=== PATIENT | female | born 1985 | race Caucasian/White ===

== ENCOUNTER 2018-08-09 05:39 | Day surgery (SDC) | payer MEDICAID ==
[2018-08-06 09:26] VITALS: BMI 23.6
--- NOTE | 2018-08-08 10:03 | PREOPHP ---
DATE OF ADMISSION: 08/09/2018 HISTORY OF PRESENT ILLNESS: Ms. Kaleigh Motley is a 33-year-old 3, para 2, desires permanent surgical sterilization. MEDICAL HISTORY: None. MEDICATIONS: Oral contraception pills. PAST SURGICAL HISTORY: None. OBSTETRICAL HISTORY: Vaginal delivery x2, x1 missed AB., GYNECOLOGIC HISTORY: Twelve, regular, 3 to 4 days. Denies any sexually transmitted infections. SOCIAL HISTORY: Denies any smoking, drugs or alcohol. FAMILY HISTORY: None. REVIEW OF SYSTEMS: All within normal except history of present illness. PHYSICAL EXAMINATION: HEENT: Within normal. LUNGS: CTA bilateral. HEART: S1, S2, regular rhythm. ABDOMEN: Obese, soft, nontender. EXTREMITIES: Negative edema. No calf tenderness. GENITOURINARY: Normal external genitalia. Cervix negative. CMT negative lesions. Adnexa negative mass, nontender bilateral. Fundus within normal limits. ASSESSMENT: Multiparity, desires permanent surgical sterilization. PLAN: Consent for laparoscopic bilateral tubal sterilization. Risks, benefits and alternatives explained. All questions were answered. Dictated By: CLARISSE JUAREZ/JARAD Conf#: [id number] DID#: [id number] BARRERA
[2018-08-09] VITALS (12 sets, daily range): BP systolic 113–130; BP diastolic 56–69; PULSE 62–97; RESP 14–24; Ht 157.5 cm; Wt 101.9 kg
[~2018-08-09] VITALS: Ht 157.5 cm; Wt 101.9 kg
[~2018-08-09 05:39] MED LIST: [UNRECOGNIZED DRUG - REMARK]
[2018-08-09] MEDS ORDERED: SUMA25TA3 PO (06:52)
[2018-08-09] MEDS ORDERED: SEVOFLURANE 15 MIN ONE (07:00)
[2018-08-09] MEDS ORDERED: LACTATED RINGER'S 1,000 ML IV SCH (07:00)
--- NOTE | 2018-08-09 07:31 | PREAC ---
Date/Time of Note Date/Time of Note DATE: 08/09/18 TIME: 07:29 Anesthesia Eval and Record Evaluation Time Pre-Procedure Interview DATE: 08/09/18 TIME: 07:29 Age 33 Sex female NPO: 8 hrs Preoperative diagnosis Sterilization Planned procedure BTL Past Medical History Past Medical History: Includes GI: Morbid obesity Surgery & Anesthesia Issues No known issue Meds Anticoagulation: Yes Beta Maria Elena within 24 hr: Yes Reported Medications Sumatriptan Succinate* (Sumatriptan Succinate*) 25 Mg Tablet, 25 MG PO BID PRN for MIGRAINE HEADACHE, TAB May repeat after 2 hours if needed; MAX 200 mg/24 hours 08/09/18 [Migrain Meds] No Conflict Check, PRN for HEADACHE 08/06/18 Current Medications Lactated Ringer's 1,000 ml @ 0 mls/hr Q0M IV ; Start 08/09/18 at 07:00 Meds reviewed: Yes Allergies Coded Allergies: No Known Allergy (Unverified , 08/06/18) Allergies Reviewed: Yes Labs/Studies Labs Reviewed: Reviewed by anesthesiologist Result Diagram: 08/09/18 0632 Laboratory Tests 08/09/18 06:32 test: Negative Studies: ECG Pre-procedure Exam Last vitals Vital Signs Date Temp Pulse Resp B/P (MAP) Pulse Ox O2 O2 Flow FiO2 Time Delivery Rate 08/09/18 97.3 97 18 130/69 99 Room Air 06:42 (89) Airway: Adequate mouth opening, Adequate thyromental dist Mallampati: Mallampati II Teeth: Normal Lung: Normal Heart: Normal ASA Physical Status ASA physical status: 2 Emergency: None Planned Anesthetic General/MAC: ETT Planned Pain Management Parenteral pain med Pre-operative Attestations Prior to commencing anesthesia and surgery, the patient was re-evaluated, there was verification of: *The patient's identity *The results of appropriate recent lab work and preoperative vital signs *The above evaluation not changing prior to induction *Anesthetic plan, risk benefits, alternative and complications discussed with patient/family; questions answered; patient/family understands, accepts and wishes to proceed. THEO MILLER MD Aug 09, 2018 07:31
[2018-08-09] MEDS ORDERED: BUPIVACAINE 0.25% (MPF) 30 ML INJ ONE (07:34)
[2018-08-09] MEDS ORDERED: MIDAZOLAM 1 MG/ML 2 ML INJ ONE (07:44)
[2018-08-09] MEDS ORDERED: FENTAnyl 50 MCG/ML VIAL ONE (07:45)
[2018-08-09] MEDS ORDERED: PROPOFOL 20 ML ONE (08:39)
[2018-08-09] MEDS ORDERED: LIDOCAINE 2% (SDV) 5 ML INJ ONE (08:39)
[2018-08-09] MEDS ORDERED: ROCURONIUM 50 MG INJ ONE (08:39)
[2018-08-09] MEDS ORDERED: GLYCOPYRROLATE 0.4 MG INJ ONE (08:39)
[2018-08-09] MEDS ORDERED: NEOSTIGMINE 3 MG/3 ML SYRINGE ONE (08:39)
[2018-08-09] MEDS ORDERED: ONDANSETRON 4 MG INJ ONE (08:40)
[2018-08-09] MEDS ORDERED: KETOROLAC 30 MG INJ ONE (08:40)
[2018-08-09] MEDS ORDERED: CEFAZOLIN 1 GM INJ ONE (08:47)
--- NOTE | 2018-08-09 08:56 | PAC ---
Date/Time of Note Date/Time of Note DATE: 08/09/18 TIME: 08:56 Post-Anesthesia Notes Post-Anesthesia Note Last documented vital signs Vital Signs Date Temp Pulse Resp B/P (MAP) Pulse Ox O2 O2 Flow FiO2 Time Delivery Rate 08/09/18 98.0 08:54 08/09/18 97 18 130/69 99 Room Air 06:42 (89) Activity: WNL Respiratory function: WNL Cardiovascular function: WNL Mental status: Baseline Pain reasonably controlled: Yes Hydration appropriate: Yes Nausea/Vomiting absent: Yes Comments BP;118/56, pulse:78, spo2:100%, T:98,1 THEO MILLER MD Aug 09, 2018 08:56
[2018-08-09] MEDS ORDERED: FENTAnyl 50 MCG/ML VIAL IV PRN (09:00)
[2018-08-09] MEDS ORDERED: HYDROmorphONE 1 MG/5 ML IV SYRINGE IV PRN ×2 (09:00)
[2018-08-09] MEDS ORDERED: ONDANSETRON 4 MG INJ IV PRN (09:00)
[2018-08-09] MEDS ORDERED: MEPERIDINE 25 MG INJ IV PRN (09:00)
[2018-08-09] MEDS ORDERED: METOCLOPRAMIDE 10 MG INJ IV PRN (09:00)
[2018-08-09] MEDS ORDERED: DIPHENHYDRAMINE 50 MG INJ IV PRN (09:00)
--- NOTE | 2018-08-09 09:22 | OPPN ---
Date/Time of Note Date/Time of Note DATE: 08/09/18 TIME: 09:20 Operative Report Planned Procedure Procedure date Aug 09, 2018 Procedure(s) laparoscopic bilateral tubal fulguration. Performed by see signature line Rheumatology Nurse: CLARISSE ANGLIN MD 2nd Rheumatology Nurse none Anesthesiologist: THEO MILLER MD Pre-procedure diagnosis Multiparity, desires permanent surgical sterilization [id number] Anesthesia Type: [id number] general Post-Procedure Post-procedure diagnosis same Findings normal uterus tubes and ovaries Estimated Blood Loss: minimal Specimen(s) none Grafts/Implant(s) none Complication(s) none CLARISSE ANGLIN MD Aug 09, 2018 09:22
--- NOTE | 2018-08-09 09:23 | PD.PPDC ---
PRIVATE CHEF Discharge Instruction Condition [id number] Patient Condition: Nosnp3w Good Diet [id number] Diet: Hwjzq4d Resume Regular Diet Activity/Restrictions [id number] Activity: Kiies4l Normal Activity May Shower Qydon0Dh Restrictions: Dlotl7n No Exercising No Lifting No Driving No Sexual Activity Nothing in the Vagina No [place] No Tampons, douche Follow-up Follow-up with Physician: 2, 3, Week/Weeks Return to clinic for Tendc4Xv CONGRESSIONAL AIDE Instructions: Fjntq0e Fever greater than 101 Chills Worsening abdominal pain Excessive Vaginal Bleeding More than 2 pads per hour Unable to tolerate diet [id number] OB Instructions: Wuwle2g Breast Tenderness Depression Blurried Vision Headache Dmszp6Lb Surgical Instructions: Pbpof4a Incisional Drainage Incisional Redness CLARISSE ANGLIN MD Aug 09, 2018 09:22
--- NOTE | 2018-08-09 09:29 | NUR ---
PACU NOTES: PATIENT AWAKE AND ALERT. S/P LAP BTL NO BLEEDING W/ LAP SITE X2, BAND AID X 3. W/ PRESCRIPTION IN CHART. FAMILY AWARE OF DISCHARGE AND TRANSFER TO [facility]. TOLERATED P.O FLUIDS. ON ROOM AIR 99%
--- NOTE | 2018-08-09 09:48 | OPR ---
DATE OF OPERATION: 08/09/2018 PRIMARY DIAGNOSIS: Multiparity, desires permanent surgical sterilization. POSTOPERATIVE DIAGNOSIS: Multiparity, desires permanent surgical sterilization. OPERATION PERFORMED: Laparoscopic bilateral tubal fulguration. SURGEON: Delvis Snow MD. HEALTH OCCUPATIONS INSTRUCTOR: None. ANESTHESIA: General. COMPLICATIONS: None. ESTIMATED BLOOD LOSS: Minimal. FINDINGS: Normal uterus, tubes and ovaries. DESCRIPTION OF PROCEDURE: After explaining the risks, benefits and alternatives, the patient consent ed and signed in chart, the patient was taken to the operating room where general anesthesia was obta ined without difficulty. The patient was then examined under anesthesia and found to have a small an teverted uterus with normal adnexa. She was then placed in a dorsal supine position and prepared and draped in a normal sterile fashion. A heavy weighted speculum was then placed in the patient's vagi na and the anterior lip of the cervix was grasped with a single tooth tenaculum. A HUMI uterine sarah pulator was then advanced into the uterus to provide means to manipulate the uterus. The speculum wa s then removed from the vagina. Attention was then turned to the patient's abdomen where a 5 mm skin incision was made on the umbilical fold. The Veress needle was carefully introduced into the intrap eritoneal cavity at a 45 degree angle while tenting the abdominal wall. Intraabdominal placement was confirmed by use of water-filled syringe and drop in intraabdominal pressure with insufflation of CO 2 gas. The trocar and sleeve were then advanced without difficulty into the abdomen where intra-abdo ann placement was confirmed by laparoscope. Pneumoperitoneum was obtained with 4 liters of CO2 gas and a 5 mm trocar and sleeve were then advanced without difficulty into the abdomen where intra-abdo ann placement was confirmed by laparoscope. A second skin incision was made 2 cm above the symphys is pubis in midline. The second trocar and sleeve were then advanced under direct visualization. A survey of the patient's abdomen revealed entirely normal. The right and left fallopian tube were the n fulgurated at multiple areas of the ampullary and isthmus areas with good blanching. The instrumen ts were then removed from the patient's abdomen and the incision was repaired with 3-0 Vicryl. The H KWASI was then removed from the patient's vagina with no bleeding noted from the cervix. The patient t olerated procedure well. All counts were correct. The patient was taken to recovery room in stable condition. Dictated By: DELVIS JUAREZ/JARAD Conf#: [id number] DID#: [id number]
== END 2018-08-09 10:50 | disposition home or self-care (01) ==
LOC: SDS 05:39
PROVIDERS: ATTEND Obstetrics & Gynecology
DX: Z30.2 Encounter for sterilization (principal); E66.01 Morbid (severe) obesity due to excess calories; Z68.41 Body mass index [BMI] 40.0-44.9, adult
CPT/HCPCS: 58670; 85025; 86850; 86900; 86901; J0690; J1885; J2250; J2405; J2710; J3010; Z7610